=== PATIENT | female | born 1950 | race Caucasian/White ===

== ENCOUNTER → 2021-09-09 09:47 | Outpatient (BNVA) | payer OTHER, SELFPAY | PROVIDERS: Visit Provider Physician Assistant Medical | DX: M75.41 Impingement syndrome of right shoulder (principal) | CPT/HCPCS: 73030; 99203 ==

== ENCOUNTER → 2021-09-23 14:42 | Outpatient (BNVA) | payer OTHER, SELFPAY | PROVIDERS: Visit Provider Physician Assistant Medical | DX: M75.101 Unspecified rotator cuff tear or rupture of right shoulder, not specified as traumatic (principal); M24.811 Other specific joint derangements of right shoulder, not elsewhere classified | CPT/HCPCS: 99213 ==

== ENCOUNTER 2021-10-02 14:45 | Outpatient (REF) | payer OTHER, SELFPAY ==
--- NOTE | ~2021-10-02 | MR_ITS ---
EXAMINATION: MR SHOULDER WITHOUT CONTRAST, RIGHT CLINICAL INFORMATION: Right shoulder pain, injury. COMPARISON: None TECHNIQUE: MRI of the shoulder without contrast was performed on a high-field scanner. FINDINGS: ROTATOR CUFF: The supraspinatus and infraspinatus tendons are completely torn and retracted beyond the glenoid rim. The subscapularis tendon is attenuated with undersurface partial tearing. The teres minor tendon is intact. Moderate-severe supraspinatus and infraspinatus muscle atrophy and fatty infiltration. BICEPS: The biceps tendon is completely torn and retracted. CORACOACROMIAL ARCH: The undersurface of the acromion is curved with a large subacromial spur and probable chronic undersurface remodeling. Severe acromioclavicular osteoarthritis. LABRUM/CAPSULE: The superior labrum is blunted and diminutive. Otherwise unremarkable. GLENOHUMERAL JOINT/MARROW: Moderate joint effusion. Small marginal osteophytes. MR/MR shoulder RT wo con IMPRESSION: Completely torn and retracted supraspinatus and infraspinatus tendons with moderate-severe muscle atrophy/fatty infiltration. Undersurface partial tearing of the distal subscapularis tendon. Completely torn and retracted biceps tendon. Large subacromial spur. Severe hypertrophic acromioclavicular osteoarthritis.
== END 2021-10-02 14:46 | disposition home or self-care (01) ==
LOC: HO.MRI 14:45
PROVIDERS: Visit Provider Internal Medicine
DX: M25.511 Pain in right shoulder (principal)
CPT/HCPCS: 73221

== ENCOUNTER → 2021-10-09 09:45 | Outpatient (BNVA) | payer OTHER, SELFPAY | PROVIDERS: Visit Provider Internal Medicine | DX: M25.561 Pain in right knee (principal); M25.551 Pain in right hip; M79.644 Pain in right finger(s); Z91.81 History of falling | CPT/HCPCS: 99203 ==

== ENCOUNTER 2021-10-16 16:00 | Outpatient (RCR) | payer OTHER, SELFPAY ==
--- NOTE | 2021-09-17 17:18 | MHC.PT.EP ---
[facility] [place] [facility] [place] [facility] [place] [facility] [address] Kee Duque [address] [phone] F: [phone] F: [phone] F: [phone] F: [phone] Physical Therapy Plan of Care Date of Evaluation: Date of Surgery: N/A Diagnosis: pain in left shoulder Assessment: pt's signs and symptoms consistent w/ full thickness rotator cuff tear. pt presents to physical therapy with pain, decreased range of motion, decreased strength, impaired functional mobility, and impaired postural awareness. pt is a fair candidate for skilled PT due to age, potential remediation of impairments, typical disease/condition progression and prognosis, comorbidities, and motivation. pt would benefit from tailored strengthening and stretching exercise program, functional training, postural re-training, neuromuscular re-education, modalities as needed for pain, equipment safety demonstration. Frequency and Duration: The patient will be seen 2x/wk for 4 wks Short Term Goals: pt will be I w/ HEP to promote self-management of condition. pt will improve R shoulder flexion range of motion to 50 degrees to promote ease in writing on chalkboard at work. Long-Term Goals: pt will improve R shoulder flexion and abduction strength to at least 3/5 to promote ease in reaching for objects. pt will report a statistically significant improvement in self-reported outcome measure, SPADI, to promote return to PLOF. Treatment Plan: Modalities to reduce pain, spasms and effusion. Manual therapy to restore motion and function. Therapeutic exercise to improve strength and flexibility. Neuromuscular re-education for posture and balance. Therapeutic activities to return to functional activities of daily living. Electronically signed by: Allie Hall PT, DPT Please sign and return to therapist. Thank you for your referral.
--- NOTE | 2021-10-17 15:34 | MHC.PT.DC ---
[facility] [place] Office [place] [facility] [place] [facility] [address] Kee Duque [address] [facility] [phone] F: [phone] F: [phone] F: [phone] F: [phone] Physical Therapy Discharge Report Diagnosis: pain in left shoulder Date of Surgery: N/A Date of Evaluation: 09/17/21 Date of Discharge: 10/17/21 Treatments to Date: 6 Cancellations to Date: 2 No Shows to Date: 0 Discharge Status: Independent with HEP Recommend MD Follow-up Discharge Summary: The patient overall reported less pain but no improvement of her ability to actively raise her arm. She continues to need the other upper extremity to lift her arm any elevation. She is only able to shrug her shoulder at this time. Her recent MRI demonstrated complete supraspinatus and infraspinatus tear/rupture and partial subscapularis tearing. She is seeing an orthopedic surgeon who she will be meeting with soon to discuss her surgical options. She has plateaued with physical therapy at this time and is being discharged to her home exercise program. Electronically signed by: Allie Hall PT, DPT Please sign and return to therapist. Thank you for your referral.
== END 2021-10-17 15:34 | disposition home or self-care (01) ==
LOC: HO.PT 16:00
PROVIDERS: Visit Provider Physician Assistant Medical
DX: S49.91XD Unspecified injury of right shoulder and upper arm, subsequent encounter (principal)
CPT/HCPCS: 97110; 97162

== ENCOUNTER 2021-12-05 10:56 | Outpatient (REF) | payer OTHER, SELFPAY ==
--- NOTE | 2021-12-05 | EMG_ITS ---
This is a 71-year-old woman who fell on her hands several months ago and a couple of months later noted that she could not abduct the right shoulder. She had an MRI, which apparently showed some torn ligaments in the shoulder and she was referred here for evaluation of axillary nerve function. PHYSICAL EXAMINATION: She does not have deltoid atrophy. Has weakness of shoulder abduction, probably related to rotator cuff tear. Biceps, triceps strength is normal. IMPRESSION: Rule out axillary nerve injury. Nerve conduction EMG study: Normal electrodiagnostic study of the right upper extremity with no evidence of carpal tunnel syndrome or nerve entrapment. EMG of the right C5-T1 innervated muscles does not reveal any denervation potential of the right deltoid to suggest axillary nerve injury. There are mild changes consistent with chronic C5 radiculopathy in the biceps muscle. MD JUAN C Marie/BHAVNA / [id number]
== END 2021-12-05 10:57 | disposition home or self-care (01) ==
LOC: HO.NEURO 10:56
PROVIDERS: PCP Nurse Practitioner Family; Visit Provider Orthopaedic Surgery
DX: R20.0 Anesthesia of skin (principal)
CPT/HCPCS: 95885; 95910

== ENCOUNTER 2022-03-19 15:00 | Outpatient (RCR) | payer MEDICARE, OTHER, SELFPAY | END 2022-03-23 10:41 | disposition home or self-care (01) | LOC: HO.PT 15:00 | PROVIDERS: Visit Provider Nurse Practitioner Family | DX: M54.50 Low back pain, unspecified (principal) | CPT/HCPCS: 97110; 97162 ==